=== PATIENT | female | born 1965 | race Caucasian/White ===

== ENCOUNTER 2023-04-10 15:44 | Emergency (ER) | payer OTHER, MEDICAID ==
[~2023-04-10] VITALS: Ht 160 cm; Wt 59.9 kg
[~2023-04-10 15:44] MED LIST: METF-713 PO; QUET200T PO; RISP2TAB PO; [UNRECOGNIZED DRUG - CODE] PO
[2023-04-10 16:12] VITALS: BP 112/75
[2023-04-10 18:02] VITALS: BP 142/78
--- NOTE | 2023-04-10 18:02 | NUR ---
Patient discharged with v/s stable. Written and verbal after care instructions given and explained. Patient verbalized understanding. Ambulatory with steady gait. All questions addressed prior to discharge. Advised to follow up with PMD. PT. IS STABLE FOR D/C, NO ACUTE DISTRESS. STADY GAIT. AWAKE AND ALERT.. PT. WILL BE TAKEN BACK TO HER FACILITY [facility].
== END 2023-04-10 18:02 | disposition home or self-care (01) ==
LOC: MED 15:44
DX: S09.90XA Unspecified injury of head, initial encounter (principal); H92.02 Otalgia, left ear; X58.XXXA Exposure to other specified factors, initial encounter; Y93.89 Activity, other specified; Y92.89 Other specified places as the place of occurrence of the external cause; Y99.8 Other external cause status
CPT/HCPCS: 99282

== ENCOUNTER 2023-11-10 09:05 | Emergency (ER) | payer OTHER, MEDICAID ==
[~2023-11-10] VITALS: Ht 188 cm; Wt 77.1 kg
[2023-11-10 09:29] VITALS: BP 105/64; PULSE 108; RESP 17; TEMP 98.2; O2SAT 98
[2023-11-10] MEDS ORDERED: AMOXICILLIN 500 MG CAP PO ONE (10:10)
[2023-11-10] MEDS ORDERED: IBUPROFEN 600 MG TAB PO ONE (10:10)
[2023-11-10] MEDS ORDERED: CHLO473S62 PO (10:34)
[2023-11-10] MEDS ORDERED: IBUP-2213 PO (10:34)
[2023-11-10] MEDS ORDERED: ACET-10509 PO (10:34)
[2023-11-10] MEDS ORDERED: AMOX500C25 PO (10:34)
== END 2023-11-10 10:59 | disposition home or self-care (01) ==
LOC: MED 09:05
DX: K08.89 Other specified disorders of teeth and supporting structures (principal); E11.9 Type 2 diabetes mellitus without complications; I10 Essential (primary) hypertension; Z79.4 Long term (current) use of insulin; Z79.899 Other long term (current) drug therapy; Z90.49 Acquired absence of other specified parts of digestive tract
CPT/HCPCS: 99283